=== PATIENT | male | born 1995 | race Caucasian/White ===

== ENCOUNTER 2019-05-21 22:28 | Emergency (ER) | payer MEDICAID ==
[~2019-05-21] VITALS: Ht 195.6 cm; Wt 68.5 kg
[2019-05-21 22:51] VITALS: BP 104/64
== END 2019-05-21 23:50 | disposition home or self-care (01) ==
LOC: ER 22:29
DX: M79.672 Pain in left foot (principal); M79.671 Pain in right foot; M25.561 Pain in right knee; Z59.0 Homelessness
CPT/HCPCS: 99281

== ENCOUNTER 2019-10-23 05:45 | Emergency (ER) | payer MEDICARE, MEDICAID ==
[~2019-10-23] VITALS: Ht 182.9 cm; Wt 81.8 kg
[2019-10-23] MEDS ORDERED: LORazepam 2 mg/ml vial IM ONE (06:05)
[2019-10-23] MEDS ORDERED: haloperidol lactate 5mg/ml inj IM ONE (06:05)
[2019-10-23] MEDS ORDERED: diphenhydrAMINE 50 mg/ml inj IM ONE (06:05)
--- NOTE | 2019-10-23 06:07 | NUR ---
Pt. not cooperating and attempted to provide tap water as his urine specimen. He is also refusing to forego his belongings. MD at bedside to assess pt, and pt. is escalating. Ordered received to give ativan, benadryl and haldol.
--- NOTE | 2019-10-23 06:09 | NUR ---
Patient's mother Nita Wilde [phone], mother. She reports he was conserved by [facility], and was in an inpatient facility until when [facility]. released him to self. He has been homeless at times, until his mother got him into a trailer in [place]. He was diagnosed with schizo-affective.
--- NOTE | 2019-10-23 07:27 | NUR ---
pt appear sleeping ,laying in bed on his lft lateral side .RR even,no distress noted ,room in front of nurses station ,will cont to monitor.
--- NOTE | 2019-10-23 07:37 | NUR ---
assisted laborer landscape with blood draw, pt compliant, did not awaken
[2019-10-23 08:02] LABS: BASOPHILS % (AUTO) 0.2 % (0-1); EOSINOPHILS % (AUTO) 0.4 % (0-6); HEMOGLOBIN 13.5 g/dl (14.0-17.9); LYMPHOCYTES # (AUTO) 1.5 X10'3 (1.1-4.8); LYMPHOCYTES % (AUTO) 16.5 % (21-51); MEAN CORPUSCULAR HEMOGLOBIN 30.2 PG (27.0-31.0); MEAN CORPUSCULAR HGB CONC 33.8 g/dL (33.0-36.5); MEAN CORPUSCULAR VOLUME 89.3 FL (78-98); MEAN PLATELET VOLUME 8.6 FL (7.4-10.4); MONOCYTES # (AUTO) 0.7 X10'3 (0-0.9); MONOCYTES % (AUTO) 7.8 % (2-12); NEUTROPHILS # (AUTO) 6.8 X10'3 (1.8-7.7); NEUTROPHILS % (AUTO) 75.1 % (42-75); PLATELET COUNT 207 X10'3 (140-440); RED BLOOD COUNT 4.48 X10'6 (4.70-6.10); RED CELL DISTRIBUTION WIDTH 13.7 % (11.5-14.5)
[2019-10-23 08:10] LABS: ALANINE AMINOTRANSFERASE 17 U/L (12-78); ALBUMIN 4.2 G/DL (3.4-5.0); ALBUMIN/GLOBULIN RATIO 1.4 (1.1-1.5); ALKALINE PHOSPHATASE 72 IU/L (46-116); ANION GAP 6 (8-16); ASPARTATE AMINO TRANSFERASE 21 U/L (10-37); BILIRUBIN,TOTAL 0.3 MG/DL (0.1-1.0); BLOOD UREA NITROGEN 13 MG/DL (7-18); BUN/CREATININE RATIO 12.1 (5.4-32.0); CALCIUM 8.9 MG/DL (8.5-10.1); CHLORIDE 106 MMOL/L (99-107); CREATININE 1.07 MG/DL (0.60-1.10); GLUCOSE 86 MG/DL (70-104); POTASSIUM 3.7 MMOL/L (3.5-5.1); SODIUM 140 MMOL/L (135-145); TOTAL CARBON DIOXIDE 28.1 MMOL/L (24-32); TOTAL PROTEIN 7.3 G/DL (6.4-8.2); eGFR 84 ML/MIN
[2019-10-23 08:20] LABS: ETHANOL < 0.010 GM/DL (0.0-0.010)
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
--- NOTE | 2019-10-23 09:45 | NUR ---
Mother, Namrata, cell phone: [phone].
--- NOTE | 2019-10-23 10:20 | NUR ---
Pt attempted to provide UA via urinal; unable. Primary RN Dipak aware.
--- NOTE | 2019-10-23 11:00 | NUR ---
pt unable to urinate .tried cathetrizing pt ,but unable to get urine 2cc of urine came,offered water to pt pt has 400 ml.will try again notified dr gerard and charge nurse wyatt cook.
[2019-10-23 12:27] LABS: URINE AMPHETAMINE SCREEN NEGATIVE (Neg); URINE BARBITUATE SCREEN NEGATIVE (Neg); URINE BENZODIAZEPINES SCREEN NEGATIVE (Neg); URINE CANNABINOID SCREEN NEGATIVE (Neg); URINE COCAINE SCREEN NEGATIVE (Neg); URINE METHADONE SCREEN NEGATIVE (Neg); URINE OPIATE SCREEN NEGATIVE (Neg); URINE PHENCYCLIDINE SCREEN NEGATIVE (Neg)
[2019-10-23 12:31] LABS: CLARITY,URINE CLEAR (Clear); COLOR,URINE STRAW (Yellow); GLUCOSE, URINE NEGATIVE (Neg); KETONES,URINE NEGATIVE (Neg); LEUKOCYTE ESTERASE ,URINE TRACE (Neg); NITRITES, URINE NEGATIVE (Neg); OCCULT BLOOD,URINE MODERATE (Neg); PROTEIN,URINE NEGATIVE (Neg); UROBILINOGEN,URINE 0.2 E.U/dL (0.2-1.0)
[2019-10-23 12:39] LABS: UA COLLECTION TYPE VOIDED
[2019-10-23 12:44] LABS: BACTERIA,URINE NONE SEEN /HPF (Neg); MUCUS STRANDS NONE SEEN /LPF (Neg); RBC,URINE NONE SEEN /HPF (0-2); RENAL CELLS, URINE FEW /HPF; SQUAMOUS EPITHELIAL CELL,UR NONE SEEN /LPF (FEW); WBC,URINE 0-4 /HPF (0-4)
--- NOTE | 2019-10-23 13:45 | NUR ---
Rec patient from main ER, review overflow policy and plan of care. Now resting on his side with eyes closed
--- NOTE | 2019-10-23 15:41 | NUR ---
Resting with eyes closed
[2019-10-23] MEDS ORDERED: NO HOME MEDS (16:43)
--- NOTE | 2019-10-23 20:57 | NUR ---
Pt sleeping at start of shift. Woke up requested and given food. C/O of migraine declined to have any medication orded said he just needed water. Drank a pitcher of water. Interviewed by Ferdinand from [facility]. Per Ferdinand pt thinks he is 12 years old and Gabo is his dad. After interview pt went imediatly to sleep sleeping at this time.
--- NOTE | 2019-10-23 22:28 | NUR ---
Clint from [facility] informed pt of new 5150 hold. Pt acepted information calmly with little comment.
--- NOTE | 2019-10-24 00:56 | NUR ---
Assumed care of Pt from ALECIA Srivastava. Pt is currently sleeping, lying on his right side with blankets covering to his shouders. RR 14 and unlabored. Sitter and RN within view of Pt AAT. Carola reports she minimally interacted w/Pt as he has been primarily sleeping with the exception of participating in his [facility] interview with Ferdinand. Pt was told by Ferdinand of his 5150 to be upheld and he was calm about this news. Carola states Pt has been up a couple of times, once to request water and then for BR. States that he was appropriate when talking to her.
--- NOTE | 2019-10-24 02:20 | NUR ---
PT REMAINS ASLEEP. SITTER AND RN WITHIN VIEW OF PT AAT.
--- NOTE | 2019-10-24 06:43 | NUR ---
Patient is sleeping supine in bed. Respirations are even and unlabored.
--- NOTE | 2019-10-24 09:26 | NUR ---
Patient continues to sleep and has not eaten breakfast yet. Will continue to monitor.
--- NOTE | 2019-10-24 10:06 | NUR ---
Patient awake eating breakfast. No s/s of distress noted.
--- NOTE | 2019-10-24 11:10 | NUR ---
Patient sleeping on right side. Respirations even and unlabored.
--- NOTE | 2019-10-24 12:02 | NUR ---
Patient up to the restroom.
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
--- NOTE | 2019-10-24 12:58 | NUR ---
Pt status provided to pt's mother Namrata.
--- NOTE | 2019-10-24 13:35 | NUR ---
Patient up to the bathroom.
--- NOTE | 2019-10-24 14:50 | NUR ---
Pt is awake writing letters and then throwing them away. Pt. has been cooperative this shift. Accepted at [facility].
[2019-10-24 19:36] VITALS: BP 107/59
== END 2019-10-24 19:39 ==
LOC: ER 05:46
DX: F20.9 Schizophrenia, unspecified (principal); R45.850 Homicidal ideations; Z59.0 Homelessness
CPT/HCPCS: 96372; 99285; J1200; J1630; J2060; 36415; 80053; 80305; 80320; 81001; 84443; 85025